=== PATIENT | female | born 1950 | race Caucasian/White ===

== ENCOUNTER → 2016-07-02 | Outpatient (CLI) | payer OTHER ==
[~2016-07-02] MED LIST: ACTO15TA11 PO; ATEN25TA PO; GABA100C4 PO; LISI2.5T3 PO; NAPR250T PO; NAPR500T PO; SOMA250T PO; TRAM50TA PO; TYLENOL WITH CODEINE
[2016-07-02 16:40] LABS: BICARBONATE 26.7 MEQ/L (21.0-32.0); HDL CHOLESTEROL 53.5 MG/DL (40.0-60.0); POTASSIUM 4.4 MEQ/L (3.5-5.1)
== END ==
LOC: PLAB 12:33
PROVIDERS: ATTEND Family Medicine
DX: E55.9 Vitamin D deficiency, unspecified (principal); E78.2 Mixed hyperlipidemia; I10 Essential (primary) hypertension; N18.3 Chronic kidney disease, stage 3 (moderate); I12.9 Hypertensive chronic kidney disease with stage 1 through stage 4 chronic kidney disease, or unspecified chronic kidney disease
CPT/HCPCS: 80048; 80061; 82306

== ENCOUNTER 2016-08-19 17:03 | Emergency (ER) | payer OTHER ==
[~2016-08-19] VITALS: Ht 154.9 cm; Wt 107.5 kg
[~2016-08-19 17:03] MED LIST changes: -NAPR500T PO; -SOMA250T PO; -TRAM50TA PO
[2016-08-19 17:06] VITALS: BP 152/66; PULSE 78; RESP 15; TEMP 97.7; O2SAT 98
[2016-08-19] MEDS ORDERED: SOMA250T PO (18:03)
--- NOTE | 2016-08-19 18:04 | PD ---
HPI Chief Complaint: Pain: Acute or Chronic Time Seen by Provider: 18:02 Travel History International Travel<30 days: No Contact w/Intl Traveler<30days: No Traveled to known affect area: No History of Present Illness HPI 66-year-old female presents to the ED for evaluation of left-sided low back pain , radiating down the left hip and into the toes. Patient states she has a history of chronic back pain, however she fell backwards yesterday and states that her pain has been worsened by this accident. She denies numbness, tingling , weakness or limitations to range of motion of the lower extremities. She denies saddle anesthesia or urinary incontinence. She states her pain is similar to previous episodes. She is under the care of [facility] [place] [facility]. Treated at home with Soma with no improvement of her symptoms. She drove herself to the ED today. PFSH Past Medical History Arthritis: Yes Anxiety: Yes Cancer: No Cardiovascular Problems: Yes (htn on meds) Diabetes: Yes (type 2) Endocrine: Yes Gastrointestinal Disorders: Yes GERD: Yes Genitourinary: No Hepatitis: No Hiatal Hernia: No Hypertension: Yes Immune Disorder: No Implanted Vascular Access Dvce: Yes Musculoskeletal: Yes Neurologic: No Psychiatric: Yes Reproductive: No Respiratory: No Thyroid Disease: No ?: Not Past Surgical History Abdominal Surgery: Yes (LAP JACKIE) AICD: No Cholecystectomy: Yes Gynecologic Surgery: Yes (TOTAL HYSTERECTOMY) Hysterectomy: Yes Joint Replacement: Yes (R TKR 04/09/2013) Oral Surgery: Yes (TONSILLECTOMY) Pacemaker: No Tonsillectomy: Yes Other Surgery: Yes Social History Alcohol Use: No Tobacco Use: No Substance Use: No Allergies-Medications (Allergen,Severity, Reaction): Coded Allergies: Adhesives (Verified Allergy, Intermediate, Rash, 08/19/16) Cipro (Verified Allergy, Intermediate, Nausea/Vomiting, 08/19/16) Reported Meds & Prescriptions Reported Meds & Active Scripts Active Tramadol (Tramadol HCl) 50 Mg Tab 50 Mg PO Q6H PRN Naproxen 500 Mg Tab 500 Mg PO BID Reported Soma (Carisoprodol) 250 Mg Tab 250 Mg PO QID PRN Gabapentin 100 Mg Cap Unknown Dose PO DAILY [Tylenol With Codeine] Unknown Dose Atenolol 25 Mg Tab Unknown Dose PO BID Lisinopril 2.5 Mg Tab Unknown Dose PO DAILY Actos (Pioglitazone HCl) 15 Mg Tab Unknown Dose PO DAILY Review of Systems Except as stated in HPI: all other systems reviewed are Neg Physical Exam Narrative GENERAL: Well-nourished, well-developed obese white female in no acute distress. SKIN: Warm and dry. HEAD: Normocephalic. EYES: No scleral icterus. No injection or drainage. NECK: Supple, trachea midline. No JVD or lymphadenopathy. CARDIOVASCULAR: Regular rate and rhythm without murmurs, gallops, or rubs. RESPIRATORY: Breath sounds equal bilaterally. No accessory muscle use. GASTROINTESTINAL: Abdomen soft, non-tender, nondistended. MUSCULOSKELETAL: No cyanosis, or edema. Tender to palpation of the anterior lateral aspect of the left hip. No groin tenderness. 5/5 strength of dorsal flexion, plantar flexion, hip flexion, knee flexion. Patient is observed to ambulate with a shuffling gait. BACK: Nontender without obvious deformity. No CVA tenderness. No midline tenderness to palpation. Mild to moderate tenderness to palpation of the bilateral paraspinal lumbar musculature, left greater than right. Data Data Last Documented VS Vital Signs Date Time Temp Pulse Resp B/P Pulse Ox O2 Delivery O2 Flow Rate FiO2 08/19/16 17:06 97.7 78 15 152/66 98 Orders Ketorolac Inj (Toradol Inj) (08/19/16 18:30) MDM Medical Decision Making Medical Screen Exam Complete: Yes Emergency Medical Condition: Yes Differential Diagnosis Acute on chronic back pain versus muscle strain versus muscle spasm versus radiculopathy versus sciatica versus fracture versus other Narrative Course 66-year-old female presents to the ED for evaluation of left-sided low back pain , radiating down the left hip and into the toes. Patient states she has a history of chronic back pain, however she fell backwards yesterday and states that her pain has been worsened by this accident. She denies numbness, tingling , weakness or limitations to range of motion of the lower extremities. She denies saddle anesthesia or urinary incontinence. She states her pain is similar to previous episodes. She is under the care of [facility] [place] [facility]. Treated at home with Soma with no improvement of her symptoms. She drove herself to the ED today. Vitals reviewed. Physical exam reveals no focal neural deficits. No loss of strength of the lower extremities. Mild to moderate tenderness to palpation of the bilateral paraspinal lumbar musculature , left greater than right. No midline tenderness to palpation. This is acute exacerbation of chronic back pain. Patient was administered IM Toradol. She was prescribed short course of tramadol and naproxen. She is instructed not to drive with taking tramadol. She is instructed to follow-up with her primary care provider. She indicated understanding of the instructions. She is stable and discharged home. Diagnosis Primary Impression: Acute exacerbation of chronic low back pain Referrals: Orthopedist Patient Instructions: Acute Low Back Pain (ED), General Instructions, Sciatica (ED) Additional Instructions: Rest, hydrate. A mixture of rest and activity as best for back pain. Resume normal, gentle activities as tolerated. No strenuous physical activities for the next few days Take anti-inflammatories twice a day as prescribed. Tramadol as needed for pain greater than 6 on the pain scale. Do not drive while taking tramadol. Applying ice or heat to areas with sore muscles may help to improve your patient. Do not apply ice/ heat for longer than 20 m/h. Follow-up with orthopedist this week Return to the ED for any urgent or emergent medical condition. Med/Other Pt SpecificInfo: Prescription(s) given Scripts Tramadol 50 Mg Tab50 Mg PO Q6H PRN (PAIN GREATER THAN 6) #15 TAB Ref 0 Prov:Guido Gutierrez MD 08/19/16 Naproxen 500 Mg Olq029 Mg PO BID #10 TAB Ref 0 Prov:Guido Gutierrez MD 08/19/16 Disposition: 01 DISCHARGE HOME Condition: Stable Obdulia Edmonds Aug 19, 2016 18:04
[2016-08-19] MEDS ORDERED: NAPR500T PO (18:21)
[2016-08-19] MEDS ORDERED: TRAM50TA PO (18:21)
[2016-08-19] MEDS ORDERED: KETOROLAC TROMETHAMINE 60 MG/2 ML (IM) VIAL IM ONE (18:30)
== END 2016-08-19 18:37 | disposition home or self-care (01) ==
LOC: PHED 17:03 → PHEFT 18:37
DX: M54.5 Low back pain (principal); I10 Essential (primary) hypertension; E11.9 Type 2 diabetes mellitus without complications; K21.9 Gastro-esophageal reflux disease without esophagitis; F41.9 Anxiety disorder, unspecified; M19.90 Unspecified osteoarthritis, unspecified site; Z79.4 Long term (current) use of insulin; Z96.651 Presence of right artificial knee joint; W18.30XA Fall on same level, unspecified, initial encounter; Y93.9 Activity, unspecified; Y92.9 Unspecified place or not applicable; Y99.9 Unspecified external cause status
CPT/HCPCS: 96372; 99283; J1885

== ENCOUNTER → 2017-03-25 | Day surgery (SDC) | payer OTHER ==
[~2017-03-25] MED LIST changes: +ATOR20TA15 PO; +BUPIVACAINE HCL PF 0.75% 30 ML VIAL ONE; +GLIP10TA6 PO; +LISI10TA3 PO; -NAPR250T PO; +NAPR500T PO; +PAXI10TA2 PO; +PROPOFOL 200 MG/20 ML AMP IV ONE; +SOMA250T PO; +TRAM50TA PO; +TRIAMCINOLONE ACETONIDE 40 MG/ML VIAL I-ARTICULR ONE; +TYLETAB34 PO
--- NOTE | 2017-03-26 13:22 | M6 ---
cc: YARA CID M.D. DATE 03/25/2017 DATE OF 1950 PROCEDURE Fluoroscopically guided injection bilateral L3-4, L4-5 and L5-S1 facet joints. History and physical was completed and signed. Consent was signed. Procedure site was marked. Medications were listed and reconciled. Pain score was recorded. Allergies were noted. Time out was taken. Fluoroscopy time was recorded where applicable. Sedation was administered or directed by Dr. Cid. The patient was given oxygen. The patient was monitored by a registered nurse. Total procedure time was greater than 15 minutes. PROCEDURE NOTE IV was started. Blood pressure cuff, pulse oximeter and EKG were applied. The patient was placed in the prone position on a Shreyas table, sedated with small amounts of propofol titrated to effect. Vital signs were monitored and remained stable throughout the procedure. The lumbar area was prepped with alcohol and 10% Betadine solution and draped with sterile drapes. Fluoroscopy was used in a Pavan dog view to clearly visualize the bilateral lumbar facet joints at L3-4, L4-5 and L5-S1. Separate sterile 5-inch, 22-gauge spinal needles were advanced into these joints under fluoroscopic guidance. There was negative aspiration for blood or any other type of fluid and at each location the patient was given 1 mL of Marcaine 0.75% which contained 10 mg of Kenalog. Following the procedure the patient was taken to the recovery room with stable vital signs, neurologically intact. She will be evaluated immediately and with followup to determine if she has a subjective decrease in her usual pain and a corresponding objective increase in her functional capabilities. W. MD MILDRED Irvin/JENNA /10:44 AM /1:15 PM
== END | disposition home or self-care (01) ==
LOC: PHSDC 08:25
PROVIDERS: ATTEND Pain Medicine Interventional Pain Medicine
DX: M54.5 Low back pain (principal)
CPT/HCPCS: 64493; 64494; 64495; 99152; J3301

== ENCOUNTER 2017-05-20 06:58 | Emergency (ER) | payer OTHER ==
[~2017-05-20] VITALS: Ht 154.9 cm; Wt 103.0 kg
[~2017-05-20 06:58] MED LIST changes: -ACTO15TA11 PO; +ACTO15TA22 PO; -BUPIVACAINE HCL PF 0.75% 30 ML VIAL ONE; -GABA100C4 PO; -LISI2.5T3 PO; -NAPR500T PO; +NAPR500T2 PO; -PAXI10TA2 PO; +PAXI10TA8 PO; -PROPOFOL 200 MG/20 ML AMP IV ONE; -SOMA250T PO; -TRAM50TA PO; -TRIAMCINOLONE ACETONIDE 40 MG/ML VIAL I-ARTICULR ONE; -TYLENOL WITH CODEINE
[2017-05-20 07:04] VITALS: BP 209/101; PULSE 90; RESP 16; TEMP 98.2; O2SAT 100
--- NOTE | 2017-05-20 07:43 | PD ---
HPI Chief Complaint: Fall Time Seen by Provider: 07:38 Travel History International Travel<30 days: No Contact w/Intl Traveler<30days: No Traveled to known affect area: No History of Present Illness HPI 67-year-old female patient with history of diabetes, chronic back pains from herniated lumbar disks for which she sees Dr. 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 She was seen by Dr. Cid yesterday and he had seen the arm, ordered an MRI which she has not gone to yet, and had given her an injection of steroids. She was prescribed pain medications. However, she states that the arm has been getting more swollen and painful and does why she is here. She does not remember hitting it, is not sure how she injured it. Modifying Factors: None Associated Signs & Symptoms: Fell, right arm pain, facial injuries Risk Factors: None PFSH Past Medical History Arthritis: Yes Anxiety: Yes Cancer: No Cardiovascular Problems: Yes (htn on meds) Diabetes: Yes (type 2) Patient Takes Glucophage: No Endocrine: Yes Gastrointestinal Disorders: Yes GERD: Yes Genitourinary: No Hepatitis: No Hiatal Hernia: No Hypertension: Yes Immune Disorder: No Implanted Vascular Access Dvce: Yes Musculoskeletal: Yes Neurologic: No Psychiatric: Yes Reproductive: No Respiratory: No Thyroid Disease: No Influenza Vaccination: Yes ?: Not Past Surgical History Abdominal Surgery: Yes (LAP JACKIE) AICD: No Cholecystectomy: Yes Gynecologic Surgery: Yes (BREAST REDUCTION, BREAST BIOPSY) Hysterectomy: Yes Joint Replacement: Yes (R TKR 04/09/2013) Oral Surgery: Yes (TONSILLECTOMY) Pacemaker: No Tonsillectomy: Yes Other Surgery: Yes Social History Alcohol Use: No Tobacco Use: No Substance Use: No Allergies-Medications (Allergen,Severity, Reaction): Coded Allergies: adhesive (Unverified Allergy, Intermediate, Rash, 05/20/17) ciprofloxacin (Unverified Allergy, Intermediate, Nausea/Vomiting, 05/20/17 ) Reported Meds & Prescriptions Reported Meds & Active Scripts Active Naproxen 500 Mg Tab 500 Mg PO BID Reported Glipizide 10 Mg Tab 15 Mg PO DAILY Take 30 minutes before a meal Lisinopril 10 Mg Tab 10 Mg PO DAILY Atenolol 25 Mg Tab 25 PO DAILY Actos (Pioglitazone HCl) 15 Mg Tab 30 Mg PO DAILY Review of Systems Except as stated in HPI: all other systems reviewed are Neg Physical Exam Narrative GENERAL: Well-developed obese elderly white female patient currently in mild distress. Awake and oriented 3. SKIN: Focused skin assessment warm/dry. HEAD: Notable for forehead abrasions. Normocephalic. EYES: Pupils equal and round. No scleral icterus. No injection or drainage. ENT: No nasal bleeding or discharge. Mucous membranes pink and moist. NECK: Trachea midline. No JVD. Supple. CARDIOVASCULAR: Regular rate and rhythm. No murmur appreciated. RESPIRATORY: No accessory muscle use. Clear to auscultation. Breath sounds equal bilaterally. GASTROINTESTINAL: Abdomen soft, non-tender, nondistended. Hepatic and splenic margins not palpable. MUSCULOSKELETAL: No obvious deformities. No clubbing. No cyanosis. No edema. Right arm: There is notable edema and ecchymosis especially over the upper arm area, going down to the hand. Tender palpation of the right upper arm area, no point tenderness. Neurovascularly intact. NEUROLOGICAL: Awake and alert. No obvious cranial nerve deficits. Motor grossly within normal limits. Normal speech. PSYCHIATRIC: Appropriate mood and affect; insight and judgment normal. Data Data Last Documented VS Vital Signs Date Time Temp Pulse Resp B/P (MAP) Pulse Ox O2 Delivery O2 Flow Rate FiO2 05/20/17 07:04 98.2 90 16 209/101 (137) 100 Orders Orders Humerus (Min 2vws) (05/20/17 07:38) Ct Brain W/O Iv Contrast(Rout) (05/20/17 07:38) Shoulder, Limited(2vws) (05/20/17 07:38) Ct Shoulder W/O Contrast (05/20/17 ) Ed Discharge Order (05/20/17 09:12) MDM Medical Decision Making Medical Screen Exam Complete: Yes Emergency Medical Condition: Yes Medical Record Reviewed: Yes Interpretation(s) Last 24 hours Impressions Shoulder X-Ray 05/20/17 0738 Signed Impressions: Service Date/Time: Saturday, May 20, 2017 07:43 - CONCLUSION: Displaced humeral neck fracture. Josh Gonzalez MD Humerus X-Ray 05/20/17737 Signed Impressions: Service Date/Time: Saturday, May 20, 2017 07:43 - CONCLUSION: Displaced fracture humeral neck. Josh Gonzalez MD Head CT 05/20/17737 Signed Impressions: Service Date/Time: Saturday, May 20, 2017 08:06 - CONCLUSION: No acute intracranial disease. Josh Gonzalez MD Differential Diagnosis Fall, facial injuries, right arm injuries: Strain versus contusion versus fracture versus intracranial injuries Narrative Course CAT scan of the brain did not show any signs of acute intracranial injuries. X- rays and CAT scans of the right shoulder shows a humeral neck fracture which is displaced and fractures into the head of the humerus. Case was discussed with Dr. Barth initially because he sees her for her back, and he states that this case really should go to the on-call orthopedics doctor. Case was then discussed with Dr. Olmos who would like to see her in the clinic for further outpatient follow-up for definitive treatment. Patient has already seen Dr. Cid regarding this issue and had been given Lortabs for pain. She should continue with the Lortabs. Return for any worsening in pain or new symptoms as needed. The plan was discussed with her and she states understanding. Diagnosis Primary Impression: Fracture of neck of humerus Disposition: 01 DISCHARGE HOME Condition: Stable Jayden Ferris MD May 20, 2017 07:43
--- NOTE | 2017-05-20 08:41 | RADRPT ---
EXAM DATE/TIME: 05/20/2017 07:43 [facility] COMPARISON: No previous studies available for comparison. INDICATIONS : Patient fell on , Complains of upper right arm pain. MEDICAL HISTORY : None. SURGICAL HISTORY : None. ENCOUNTER: Initial ACUITY: 4 - 6 days PAIN SCORE: 9/10 LOCATION: Right Shoulder FINDINGS: Two view examination of the right humerus demonstrates displaced fracture through the humeral neck ex tending into the superolateral humeral head. There is slight overlap of fracture fragments. Extensive soft tissue swelling The soft tissue structures are intact. CONCLUSION: Displaced fracture humeral neck. Josh Gonzalez MD on May 20, 2017 at 8:39 Board Certified Radiologist. This report was verified electronically.
--- NOTE | 2017-05-20 08:42 | RADRPT ---
EXAM DATE/TIME: 05/20/2017 07:43 [facility] COMPARISON: No previous studies available for comparison. INDICATIONS : Patient fell on , Complains of upper right arm pain. MEDICAL HISTORY : None. SURGICAL HISTORY : None. ENCOUNTER: Initial ACUITY: 4 - 6 days PAIN SCORE: 9/10 LOCATION: Right Shoulder FINDINGS: Two view examination of the right shoulder demonstrates displaced humeral neck fracture. Slight overl ap of fragments. Soft tissue swelling. Degenerative changes. Bony mineralization is normal. CONCLUSION: Displaced humeral neck fracture. Josh Gonzalez MD on May 20, 2017 at 8:40 Board Certified Radiologist. This report was verified electronically.
--- NOTE | 2017-05-20 08:43 | RADRPT ---
EXAM DATE/TIME: 05/20/2017 08:06 [facility] COMPARISON: No previous studies available for comparison. INDICATIONS : Fell and hit head four days ago. RADIATION DOSE: 54.82 CTDIvol (mGy) MEDICAL HISTORY : Hypertension. Gastroesophageal reflux disease. Diabetes. SURGICAL HISTORY : Tonsillectomy. Cholecystectomy.Hysterectomy. ENCOUNTER: Initial ACUITY: 4 - 6 days PAIN SCALE: 5/10 LOCATION: cranial TECHNIQUE: Multiple contiguous axial images were obtained of the head. Using automated exposure control and adj ustment of the mA and/or kV according to patient size, radiation dose was kept as low as reasonably a chievable to obtain optimal diagnostic quality images. DICOM format image data is available electro nically for review and comparison. FINDINGS: CEREBRUM: The ventricles are normal for age. No evidence of midline shift, mass lesion, hemorrhage or acute in farction. No extra-axial fluid collections are seen. POSTERIOR FOSSA: The cerebellum and brainstem are intact. The 4th ventricle is midline. The cerebellopontine angle i s unremarkable. EXTRACRANIAL: The visualized portion of the orbits is intact. SKULL: The calvaria is intact. No evidence of skull fracture. CONCLUSION: No acute intracranial disease. Josh Gonzalez MD on May 20, 2017 at 8:40 Board Certified Radiologist. This report was verified electronically.
--- NOTE | 2017-05-20 09:48 | RADRPT ---
EXAM DATE/TIME: 05/20/2017 08:13 [facility] COMPARISON: SHOULDER RIGHT LTD (2VWS), May 20, 2017, 7:43. INDICATIONS : Fall. Right shoulder pain. Evaluate fracture. RADIATION DOSE: 30.57 CTDIvol (mGy) MEDICAL HISTORY : Hypertension. Gastroesophageal reflux disease. Diabetes. SURGICAL HISTORY : Tonsillectomy. Cholecystectomy. Hysterectomy. ENCOUNTER: Initial ACUITY: 4 - 6 days PAIN SCALE: 10/10 LOCATION: Right shoulder TECHNIQUE: Volumetric scanning of the shoulder was performed. Using automated exposure control and adjustment o f the mA and/or kV according to patient size, radiation dose was kept as low as reasonably achievable to obtain optimal diagnostic quality images. DICOM format image data is available electronically f or review and comparison. FINDINGS: BONES: Comminuted humeral neck fracture with displacement. No intra-articular extension identified, however. JOINTS: Moderate-sized joint effusion. SOFT TISSUES: Muscles, tendons, and neurovascular structures are grossly unremarkable. The integrity of the rotato r cuff tendons cannot be reliably evaluated on CT without intra-articular contrast. No evidence of m ass, organized fluid collection, or foreign body. CONCLUSION: 1. Comminuted and displaced humeral neck fracture with no intra-articular extension. 2. Moderate-sized effusion Jorge Kaye MD on May 20, 2017 at 9:33 Board Certified Radiologist. This report was verified electronically.
== END 2017-05-20 09:26 | disposition home or self-care (01) ==
LOC: PHED 06:58
DX: S42.211A Unspecified displaced fracture of surgical neck of right humerus, initial encounter for closed fracture (principal); S00.81XA Abrasion of other part of head, initial encounter; E11.9 Type 2 diabetes mellitus without complications; I10 Essential (primary) hypertension; W19.XXXA Unspecified fall, initial encounter; Z79.84 Long term (current) use of oral hypoglycemic drugs
CPT/HCPCS: 70450; 73030; 73060; 73200; 99285

== ENCOUNTER → 2017-05-29 | Outpatient (CLI) | payer OTHER ==
[~2017-05-29] MED LIST changes: +PAXI20TA26 PO; +PERC5TAB12 PO; +SIMV20TA PO
[2017-05-29 15:47] LABS: APTT (PATIENT) 24.8 SEC (24.3-30.1); INTERNATIONAL NORMALIZED RATIO 1.1 RATIO; PROTHROMBIN TIME - PATIENT 10.7 SEC (9.8-11.6)
[2017-05-29 15:58] LABS: AUTOMATED NEUTROPHIL # 7.9 TH/MM3 (1.8-7.7); BASOPHIL % 0.4 % (0.0-2.0); EOSINOPHIL % 0.4 % (0.0-4.0); HEMATOCRIT 32.6 % (35.0-46.0); HEMO FLAGS DIFF FINAL; LYMPH % 8.4 % (9.0-44.0); LYMPHOCYTE # 0.8 TH/MM3 (1.0-4.8); MEAN CELL VOLUME 91.1 FL (80.0-100.0); MEAN CORPUSCULAR HEMOGLOBIN 30.7 PG (27.0-34.0); MEAN CORPUSCULAR HGB CONC 33.7 % (32.0-36.0); MONO % 4.1 % (0.0-8.0); NEUT % 86.7 % (16.0-70.0); PLATELET COUNT 243 TH/MM3 (150-450); RED BLOOD COUNT 3.57 MIL/MM3 (4.00-5.30); RED CELL DISTRIBUTION WIDTH 15.8 % (11.6-17.2); WHITE BLOOD COUNT 9.1 TH/MM3 (4.0-11.0)
[2017-05-29 16:24] LABS: ALKALINE PHOSPHATASE 97 U/L (45-117); ALT (GPT) 14 U/L (10-53); ANION GAP 11 MEQ/L (5-15); AST (GOT) 17 U/L (15-37); BICARBONATE 20.1 MEQ/L (21.0-32.0); BLOOD UREA NITROGEN 28 MG/DL (7-18); CHLORIDE 110 MEQ/L (98-107); GLOMERULAR FILTRATION RATE 35 ML/MIN (>89); GLUCOSE,FASTING 153 MG/DL (74-99); HDL CHOLESTEROL 60.8 MG/DL (40.0-60.0); LDL CHOLESTEROL 61 MG/DL (0-99); POTASSIUM 4.4 MEQ/L (3.5-5.1); SODIUM (NA) 141 MEQ/L (136-145); TOTAL BILIRUBIN ADULT 0.5 MG/DL (0.2-1.0)
[2017-05-29 16:32] LABS: HEMOGLOBIN A1a 1.4 %; HEMOGLOBIN A1b 1.8 %; HEMOGLOBIN Ao 84.1 %; HEMOGLOBIN LA1C 2.5 %; HEMOGLOBIN P3 5.3 %
== END ==
LOC: PLAB 12:21
PROVIDERS: ATTEND Family Medicine
DX: N18.3 Chronic kidney disease, stage 3 (moderate) (principal); E78.2 Mixed hyperlipidemia; E11.29 Type 2 diabetes mellitus with other diabetic kidney complication; Z01.810 Encounter for preprocedural cardiovascular examination
CPT/HCPCS: 36415; 80053; 80061; 83036; 85025; 85610; 85730

== ENCOUNTER 2017-05-31 10:58 | Day surgery (SDC) | payer OTHER ==
[~2017-05-31] VITALS: Ht 154.9 cm; Wt 104.5 kg
[~2017-05-31 10:58] MED LIST changes: -ATOR20TA15 PO; -PAXI10TA8 PO; -PAXI20TA26 PO; -PERC5TAB12 PO; -SIMV20TA PO; -TYLETAB34 PO
[2017-05-31] MEDS ORDERED: LACTATED RINGER'S 1000 ML IV PRN (11:15)
[2017-05-31] MEDS ORDERED: SODIUM CHLORID 0.9% 500 ML IV PRN (11:15)
[2017-05-31] MEDS ORDERED: INSULIN HUMAN REGULAR 1,000 UNITS/10 ML VIAL SQ PRN (11:15)
[2017-05-31] MEDS ORDERED: CHLORHEXIDINE GLUCONATE 2 % 1 PACK (2 CLOTHS) TOPICAL PRN (11:15)
[2017-05-31] MEDS ORDERED: POVIDONE IODINE 5% (ANTISEPSIS KIT) 4 APPLICATIONS EACH NARE PRN (11:15)
[2017-05-31] MEDS ORDERED: METOPROLOL TARTRATE 25 MG TAB PO PRN (11:15)
[2017-05-31] MEDS ORDERED: ceFAZolin 2 GM PREMIX 50 ML IV SCH (11:30)
[2017-05-31] MEDS ORDERED: VANCOMYCIN HCL 1000 MG ON-CALL/NS 250 ML IV SCH ×2 (11:30)
[2017-05-31] MEDS ORDERED: PAXI20TA26 PO (12:13)
[2017-05-31] MEDS ORDERED: SIMV20TA PO (12:13)
[2017-05-31] MEDS ORDERED: VANCOMYCIN HCL 1000 MG VIAL ONE (12:56)
[2017-05-31] MEDS ORDERED: GENTAMICIN SULFATE 80 MG/2 ML VIAL ONE (12:56)
[2017-05-31] MEDS ORDERED: ACETAMINOPHEN 1000 MG/100 ML 100 ML IV ONE (13:45)
[2017-05-31] MEDS ORDERED: SUGAMMADEX SODIUM 200 MG/2 ML VIAL IV PUSH ONE ×2 (15:35)
[2017-05-31] MEDS ORDERED: SODIUM CHLORIDE 0.9% FLUSH 10 ML FLUSH IV FLUSH PRN (15:45)
[2017-05-31] MEDS ORDERED: oxyCODONE/ACETAMINOPHEN 5 MG/325 MG TAB PO PRN ×2 (15:45)
[2017-05-31] MEDS ORDERED: MORPHINE SULFATE 4 MG/ML INJ IV PUSH PRN (15:45)
[2017-05-31] MEDS ORDERED: ONDANSETRON HCL 4 MG/2 ML VIAL IV PUSH PRN (15:45)
--- NOTE | 2017-05-31 15:45 | PD.OP ---
cc: Alonzo Claros Jr., MD Operative Report Date of Surgery: May 31, 2017 Preoperative Diagnosis: Right proximal humerus 3 part fracture Postoperative Diagnosis: Same Procedure: Open reduction internal fixation right proximal humerus Anesthesia: Gen. Surgeon: Alonzo Claros Lace Roller Operator(s): ANU Hahn The surgical procedure was assisted by my Advanced Registered Nurse Practitioner. My [employer] presence was necessary throughout this case for the manipulation and positioning of the surgical extremity. My N[employer] DRIVER was assisting me throughout the duration of this procedure. The skill set of an Advance Registered Nurse Practitioner was medically necessary to complete this procedure. During the surgical case, the [employer] was working at the back table and the Advance Registered Nurse Practitioner was directly assisting me. Resident Surgeon: None Operation and Findings: Patient was seen and evaluated preoperatively. Patient was found to have a displaced comminuted right 3part proximal humerus fracture. The risks and benefits of surgical and nonsurgical options were discussed in detail and informed consent was obtained for surgery. Patient was brought to the operating room and placed on or table. IV sedation and GETA were administered by anesthesiologist. Antibiotics were given prior to incision. Operative arm and shoulder were prepped with alcohol followed by Hibiclens and draped usual sterile fashion. Timeout procedure was performed. Procedure began with a 5 inch incision over the anterior shoulder. Cephalic vein was identified. A deltopectoral approach was utilized. The fracture was now visualized. Soft tissue was retracted. A #2 FiberWire suture was placed into the rotator rotator cuff and greater tuberosity. A second #2 FiberWire suture was placed into the subscapularis tendon and lesser tuberosity. Attention was now turned to reduction. Gentle traction was applied. The humeral shaft was reduced to the humeral head. Fracture was manipulated to achieve excellent reduction. Multiplanar fluoroscopy confirmed well aligned fracture. Multiple K wires were used to hold provisional fixation. A Synthes proximal humerus plate was selected. Plate was provisionally held in place K wires. 3.5 cortical screws were used to compress plate to bone. Fluoroscopy confirmed appropriate plate placement and fracture reduction. Multiple locking screws were now placed in the humeral head. Screws were predrilled and premeasured for appropriate length. Care was taken not to penetrate the articular surface. Additional screws were placed in the humeral shaft. The FiberWire suture were passed through the holes of the plate and sutured to the plate for additional stability. Final fluoroscopy revealed well aligned fracture with well-placed hardware. Wound was thoroughly irrigated. Fascia was closed with #1 Vicryl, subcutaneous tissues closed with 3-0 Vicryl, and skin was closed with jake. Sterile dressings were applied. Patient was placed into a sling/swathe. Patient was awakened and transferred to recovery in stable condition. Needle and sponge counts were correct. Postop plan: NWB RUE No ROM no dressing changes Alonzo Claros Jr., MD May 31, 2017 15:45
[2017-05-31] MEDS ORDERED: DO NOT ADM ANY ANTICOAGULANT DRUGS PRN (15:55)
[2017-05-31] MEDS ORDERED: PERC5TAB12 PO (16:17)
[2017-05-31] MEDS ORDERED: KETOROLAC TROMETHAMINE 30 MG/ML (IVP) VIAL IVP ONE (16:30)
[2017-05-31] MEDS ORDERED: *ONDANSETRON 4 MG VIAL PERIprocedural Use ONLY ONE (16:31)
[2017-05-31] MEDS ORDERED: oxyCODONE/ACETAMINOPHEN 5 MG/325 MG TAB ONE (16:31)
[2017-05-31 16:45] VITALS: BP 148/66; PULSE 70; RESP 16; TEMP 98.5; O2SAT 98
[2017-05-31] MEDS ORDERED: MORPHINE SULFATE 2 MG/ML INJ IV PUSH PRN (16:45)
--- NOTE | 2017-05-31 17:35 | EKG ---
Date Performed: 05/31/2017 Time Performed: 11:33:54 PTAGE: 67 years EKG: Sinus rhythm LOW QRS VOLTAGE IN PRECORDIAL LEADS BORDERLINE ECG PREVIOUS TRACING : 03/30/2013 11.27 Compared to prior tracing no significant change DOCTOR: Jerry Jackson Interpretating Date/Time 05/31/2017 17:34:16
--- NOTE | 2017-05-31 17:53 | RADRPT ---
EXAM DATE/TIME: 05/31/2017 15:09 [facility] COMPARISON: No previous studies available for comparison. INDICATIONS : Surgical repair of right proximal humerus. MEDICAL HISTORY : None. SURGICAL HISTORY : None. ENCOUNTER: Initial ACUITY: 1 day PAIN SCORE: Non-responsive. LOCATION: Right shoulder. FINDINGS: Anatomic alignment following reduction internal fixation fracture proximal humerus. CONCLUSION: Anatomic alignment Devon Caro MD FACR on May 31, 2017 at 17:50 Board Certified Radiologist. This report was verified electronically.
[2017-05-31] MEDS ORDERED: SODIUM CHLORIDE 0.9% FLUSH 10 ML FLUSH IV FLUSH SCH (21:00)
== END 2017-05-31 16:52 | disposition home or self-care (01) ==
LOC: HSDC 10:58
PROVIDERS: ATTEND Orthopaedic Surgery
DX: S42.211A Unspecified displaced fracture of surgical neck of right humerus, initial encounter for closed fracture (principal); I10 Essential (primary) hypertension; E11.9 Type 2 diabetes mellitus without complications; F41.9 Anxiety disorder, unspecified; E66.9 Obesity, unspecified; Z68.41 Body mass index [BMI] 40.0-44.9, adult; Z79.84 Long term (current) use of oral hypoglycemic drugs
CPT/HCPCS: 01630; 23615; 73030; 76000; 86850; 86900; 86901; 93005; C1713; J0131; J0690; J1580; J1885; J2405; J3370; J7050; J7120